=== PATIENT | male | born 1960 | race Caucasian/White ===

== ENCOUNTER 2018-02-21 08:40 | Day surgery (SDC) | payer BC ==
[2018-02-21 09:32] LABS: MPV 7.4 fL (7.6-11.3); Protime INR 0.97
[2018-02-21 10:58] LABS: Platelet Estimate ADEQ
--- NOTE | 2018-02-21 13:07 | RAD REPORT ---
EXAM DESCRIPTION: CTSpine Lumbar Wo Con02/21/2018 11:55 am CLINICAL HISTORY: ICD M 48.02/M 48.062/radiculopathy. COMPARISON: None TECHNIQUE: Computed axial tomography lumbar spine was obtained with coronal and sagittal reconstruct ion after the administration of 12 mL 300 Isovue into the thecal sac. All CT scans are performed using dose optimization technique as appropriate and may include automated exposure control or mA/KV adjustment according to patient size. FINDINGS: L1-L2 is unremarkable. Disc bulge is present at L2-3 mildly encroaching upon the thecal sac. The neural foramina are patent. A right lateral disc herniation is present at L3-L4 which results in narrowing of the right neural f oramina. Disc bulge and facet hypertrophy is present at L4-L5. The thecal sac is minimally narrowed measuring 11 mm. There is [id number]-[id number] narrowing of the neural foramina. Posterior fusion involves the lower lumbar spine. Pedicular screws have been placed at L5 and S1 is. A disc spacer is present at L5-S1. The thecal sac is not significantly narrowed. Facet hypertrophy is present. Mild narrowing of the left neural foramina is noted. IMPRESSION: 1. Postsurgical changes involving the lower lumbar spine without visualization of a significant abnor mality. 2. Right lateral disc herniation L3-L4.
--- NOTE | 2018-02-21 13:39 | RAD REPORT ---
EXAM DESCRIPTION: RAD - Myelography Lumbar - 02/21/2018 12:56 pm CLINICAL HISTORY: Radiculopathy COMPARISON: None FINDINGS: The risks, benefits and alternatives to the procedure were explained to the patient and in formed consent obtained. The patient was placed prone into the fluoroscopy suite. The skin and subcutaneous tissues were anest hetized with lidocaine. Under fluoroscopic guidance a 22 gauge spinal needle was advanced into the th ecal sac at L2-3 level. 12 cc Isovue-300 was administered into the thecal sac. Frontal, oblique and lateral views of the lumbar spine were obtained. The patient then went to the CT scanner for CT of the lumbar and cervical spine. Fluoroscopy time 1 minute 8 seconds. A total of 7 fluoroscopic spot images were obtained Patient experienced no immediate complication.
--- NOTE | 2018-02-21 13:54 | RAD REPORT ---
EXAM DESCRIPTION: CT - Myelogram C Spine - 02/21/2018 12:09 pm CLINICAL HISTORY: Radiculopathy/ICD M 40.02/M 48.062. COMPARISON: None. TECHNIQUE: Computed axial tomography of the cervical spine was obtained with coronal and sagittal re construction status post administration of 12 mL 300 Isovue into the thecal sac. All CT scans are performed using dose optimization technique as appropriate and may include automated exposure control or mA/KV adjustment according to patient size. FINDINGS: A small disc bulge is present at C2-C3 minimally encroaching upon the thecal sac. The neur al foramina are patent. A Disc bulge is present at C3-C4 mildly encroaching upon the thecal sac. Thecal sac measures 11 mm. Sma ll osteophytes are noted. The neural foramina are patent. Minimal disc bulge is present at C4-C5 minimally encroaching upon the thecal sac. Neural foramina are patent. A small disc bulge present at C5-C6 minimally encroach upon the thecal sac. The neural foramina are p atent. A small to moderate broad-based right paracentral disc herniation is present at C6-7 which abuts the spinal cord. Osteophytes are noted. Mild narrowing of the neural foramina bilaterally is seen. No significant abnormality of C7-T1 is noted. IMPRESSION: Small to moderate right paracentral disc herniation C6-C7.
== END 2018-02-21 15:30 | disposition home or self-care (01) ==
LOC: DS 08:40
PROVIDERS: ATTEND Radiology Diagnostic Radiology
PROC: B01B1ZZ Fluoroscopy of Spinal Cord using Low Osmolar Contrast (ICD-10-PCS; principal; 2018-02-21)
DX: M50.123 Cervical disc disorder at C6-C7 level with radiculopathy (principal); M51.16 Intervertebral disc disorders with radiculopathy, lumbar region
CPT/HCPCS: 36415; 62302; 62304; 72126; 72131; 85049; 85610; 85730

== ENCOUNTER 2018-12-19 07:42 | Day surgery (SDC) | payer BC ==
[2018-12-19] MEDS ORDERED: Ringers Lactate 1,000 ML IV ONE (08:16)
[2018-12-19] MEDS ORDERED: PROPOFOL 200 MG/20 ML VIAL IV ONE ×2 (10:41)
[2018-12-19] MEDS ORDERED: LIDOCAINE 1% MPF 5 ML VIAL ONE (10:41)
--- NOTE | 2018-12-22 03:47 | ENDO RPT ---
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 ESTIMATED BLOOD LOSS: None CONSENT: The patient understands the risks and benefits of the procedure and understands that these risks include, but are not limited to: sedation, allergic reaction, infection, perforation and/or bleeding. Alternative means of evaluation and treatment include, among others: physical exam, x-rays, and/or surgical intervention. The patient elects to proceed with this endoscopic procedure. DESCRIPTION OF PROCEDURE: During intra-op preparation period all mechanical medical equipment was checked for proper function. Hand hygiene and appropriate measures for infection prevention was taken. Procedure, possible complications, alternatives including, but not limited to possibility of bleeding, perforation, tear, infection, sepsis, need for surgery, need for blood transfusion, were explained to the patient. After the risks, benefits and alternatives of the procedure were thoroughly explained, Informed consent was verified, confirmed and timeout was successfully executed by the treatment team. The patient was placed in the left lateral position. A digital rectal exam was performed and revealed external hemorrhoids. After appropriate level of anesthesia, the scope was passed. The EC-[id number] ([id number]) endoscope was introduced through the anus and advanced to the cecum, which was identified by transillumination from the light source, the appendix, and the ileocecal valve. The quality of the prep was good. The instrument was then slowly withdrawn as the colon was fully examined. Scope withdrawal time was . COLON FINDINGS: Diverticula was found in the sigmoid colon. The opening was medium sized. Two sessile polyps were found at 25 and 30 cm from anal verge less than 04 cm in size.. Retroflexed views revealed no abnormalities. The scope was then completely withdrawn from the patient and the procedure terminated. ADVERSE EVENTS: There were no complications. IMPRESSIONS: 1. Diverticula in the sigmoid colon 2. Two sessile polyps were found 3. External hemorrhoids 4. Internal hemorrhoids RECOMMENDATIONS: 1. await biopsy results 2. follow-up: office 1 week(s) 3. no seeds in diet RECALL: for Colonoscopy, pending biopsy results. Kamlesh Coker MD eSigned: Kamlesh Coker MD 12/19/2018 10:55 AM cc: CPT CODES: ICD9 CODES: PATIENT NAME: Baron James MR#: [id number]
== END 2018-12-19 11:46 | disposition home health service (06) ==
LOC: OR 07:42
PROVIDERS: ATTEND Surgery
PROC: 0DBE8ZX Excision of Large Intestine, Via Natural or Artificial Opening Endoscopic, Diagnostic (ICD-10-PCS; principal; 2018-12-19 09:45)
DX: K63.5 Polyp of colon (principal); K57.30 Diverticulosis of large intestine without perforation or abscess without bleeding; K64.8 Other hemorrhoids; K64.4 Residual hemorrhoidal skin tags; I10 Essential (primary) hypertension; F17.210 Nicotine dependence, cigarettes, uncomplicated; Z85.528 Personal history of other malignant neoplasm of kidney; Z79.899 Other long term (current) drug therapy; Z88.8 Allergy status to other drugs, medicaments and biological substances
CPT/HCPCS: 88305; J2704

== ENCOUNTER 2019-01-08 17:56 | Emergency (ER) | payer BC, SELFPAY ==
[2019-01-08] MEDS ORDERED: ONDANSETRON 4 MG (ODT) TAB ONE (18:34)
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
== END 2019-01-08 19:16 | disposition home or self-care (01) ==
LOC: ER 17:56
DX: S16.1XXA Strain of muscle, fascia and tendon at neck level, initial encounter (principal); Y04.8XXA Assault by other bodily force, initial encounter; Y93.9 Activity, unspecified; Y92.9 Unspecified place or not applicable; Z88.8 Allergy status to other drugs, medicaments and biological substances; I10 Essential (primary) hypertension; F17.210 Nicotine dependence, cigarettes, uncomplicated
CPT/HCPCS: 70450; 70486; 72125; 76377; 99284